=== PATIENT | male | born 1995 | race Caucasian/White ===

== ENCOUNTER → 2017-11-27 08:39 | Outpatient (CLI) | payer OTHER, MEDICAID, SELFPAY | PROVIDERS: PCP Family Medicine; Visit Provider Psychiatry & Neurology Neurology | DX: Z79.899 Other long term (current) drug therapy (principal) ==

== ENCOUNTER → 2022-12-08 09:02 | Outpatient (CLI) | payer OTHER, MEDICAID, SELFPAY ==
--- NOTE | 2022-12-08 09:04 | DI.ECHO.S_ITS ---
[facility]+ : : [address] : [place] : : : : [id number] : : : : Phone: [phone]+ Echocardiogram Report + + :Name: ALYSHA SHEETS Study Date: 12/08/2022 Height: 72.5 in: :[facility] ReadingLocation: Weight: 390 lb : : Gender: Male BSA: 2.8 m2 : :: 1995 Age: 27 yrs : :Reason For Study: CARDIOMEGALY AND PULMONARY EDEMA : :Ordering Physician: JAY, : :LAURA Performed By: Elaine Reddy : :Referring: LAURA THOMPSON : + + Interpretation Summary The ejection fraction is estimated to be 60-65%. The left ventricle is normal in size and wall thickness. There is no significant valvular heart disease. Procedure: A two-dimensional transthoracic echocardiogram with color flow and Doppler was performed. The study quality was technically difficult. There is no prior echocardiogram noted for this patient. The patient was in sinus rhythm with heart rates between 76-90 bpm during the exam. Left Ventricle: The left ventricle is normal in size and wall thickness. The estimated left ventricular end diastolic volume is 91 ml. The ejection fraction is estimated to be 60-65%. Left ventricular wall motion is normal. Right Ventricle: The right ventricle is normal in size and function. Atria: The left atrial size is normal. Right atrial size is normal. There is no Doppler evidence for an interatrial shunt. Mitral Valve: The mitral valve is normal in structure and function. There is no mitral regurgitation noted. Aortic Valve: The aortic valve is not well visualized. There is no aortic valve stenosis. No aortic regurgitation is present. Tricuspid Valve: The tricuspid valve is not well visualized, but is grossly normal. No tricuspid regurgitation. Pulmonic Valve: The pulmonic valve is not well visualized. There is no pulmonic valvular regurgitation. Great Vessels: The aortic root is normal size. The dimensions of the ascending aorta are normal. The inferior vena cava was not visualized. Pericardium/ Pleura There is no pericardial effusion. There is no pleural effusion. MMode/2D Measurements & Calculations LVIDd: 4.8 cm LVOT diam: 2.7 cm LVIDs: 3.2 cm Ao root diam: 3.8 cm FS: 33.0 % asc Aorta Diam: 3.6 cm IVSd: 1.2 cm Ao Arch Diam (Prox Trans): 3.1 cm LVPWd: 0.89 cm LV raymundo. diameter/BSA (cm/m^2): 1.7 LV sys. diameter/BSA (cm/m^2): 1.1 LA A2 area: 18.1 cm2 RA long axis: 5.1 cm LA A4 area: 17.1 cm2 RA area: 16.0 cm2 LA length (vol): 5.8 cm RA vol: 42.7 ml LA vol: 45.6 ml RA : 15.0 ml/m2 LA vol index: 16.0 ml/m2 RVD1 (basal): 3.4 cm RVD2 (mid): 3.1 cm TAPSE: 2.1 cm Doppler Measurements & Calculations Ao V2 max: 115.3 cm/sec LVOT Max Ricci: 96.3 cm/sec Ao V2 mean: 85.1 cm/sec LV V1 max P.7 mmHg Ao max P.3 mmHg LV V1 VTI: 18.0 cm Ao mean P.2 mmHg LATOYA(I,D): 4.6 cm2 Ao V2 VTI: 22.7 cm LATOYA(V,D): 4.8 cm2 sev ratio: 0.79 LATOYA indexed to BSA (cm^2/m^2): 1.6 MV E max ricci: 73.0 cm/sec PA V2 max: 85.8 cm/sec MV A max ricci: 64.0 cm/sec PA V2 mean: 65.2 cm/sec MV E/A: 1.1 PA mean P.8 mmHg Med Peak E' Ricci: 7.6 cm/sec PA pr(Accel): 17.3 mmHg E/E' med: 9.6 Lat Peak E' Ricci: 8.1 cm/sec E/E' lat: 9.0 E/e' average: 9.3 MV dec time: 0.17 sec SV(LVOT): 103.7 ml Reading Physician:05:17 PM
== END ==
PROVIDERS: Family Provider Pediatrics; PCP Family Medicine; Referring Provider Family Medicine; Visit Provider Family Medicine
DX: I51.7 Cardiomegaly (principal); J81.1 Chronic pulmonary edema
CPT/HCPCS: 93306

== ENCOUNTER 2023-08-26 15:32 | Emergency (ER) | payer OTHER, MEDICAID, SELFPAY ==
[2023-08-26 15:36] VITALS: BP 149/87; PULSE 105; RESP 16; TEMP 36.3; O2SAT 95; BMI 49.6
--- NOTE | 2023-08-26 16:40 | ED.GENADULT ---
HPI - General Adult General Chief complaint: Urogenital-Male Stated complaint: sent by Dr Walker for testicular torsion Time Seen by Provider: 08/26/23 16:17 Source: patient and family Mode of arrival: Ambulatory Limitations: other (Autism) History of Present Illness HPI narrative: Patient is a 28-year-old male. Does have autism. Is nonverbal. Is here with mother and sister are his 24 hour caretakers. Is here for evaluation of what they think potentially is testicular pain or maybe even lower abdominal pain. They think it over the past couple days he is expressed discomfort in this area although it does not seem to be persistent. They was sent by the primary doctor for evaluation of concern for maybe a testicular torsion. He was urinating like normal. No prior abdominal surgeries. Has been ?regurgitating? some of his food but this is not necessarily new. Patient is unable to provide any HPI or review of systems. Related Data Previous Rx's Medication Instructions Recorded triamcinolone acetonide 0.5 % 1 applictn topical BID #15 grams 03/17/19 topical cream nystatin 100,000 unit/gram topical 1 applic topical BID #60 grams 01/31/21 powder disabled parking permit #1 ea 04/15/21 glucometer #1 ea 07/07/22 glucose test strips #90 ea 07/07/22 lancet #90 ea 07/07/22 topiramate 100 mg tablet 100 mg PO BID #180 tabs 07/07/22 ketoconazole 2 % shampoo See Rx Instructions .Route 09/08/22 .COMPLEX #120 mL clobetasol 0.05 % topical ointment 1 applic topical BID #45 grams 02/03/23 aripiprazole 10 mg tablet 10 mg PO DAILY #90 tabs 04/22/23 fluvoxamine 100 mg tablet 200 mg (2 x 100 mg) PO ONCE PM 04/22/23 #180 tabs losartan 25 mg tablet 25 mg PO DAILY #90 tabs 04/22/23 propranolol 40 mg tablet 40 mg PO QPM #90 tabs 04/22/23 lorazepam 0.5 mg tablet 0.5 mg PO BID PRN agitation #20 05/07/23 tabs metformin 500 mg tablet 1,000 mg (2 x 500 mg) PO BID #180 06/09/23 tabs Allergies Allergy/AdvReac Type Severity Reaction Status Date / Time No Known Drug Allergies Allergy Verified 08/26/23 15:42 Review of Systems Review of Systems Narrative: See HPI Patient History Medical History Diabetes mellitus Morbid obesity Autism spectrum disorder Essential hypertension Family History Mother Hypertension Social History Smoking Status: Never smoker Smoking Status: Never smoker Substance Use Type: does not use Exam Initial Vital Signs Initial Vital Signs: Vital Signs Temperature 97.4 F L 08/26/23 15:36 Pulse Rate 105 H 08/26/23 15:36 Respiratory Rate 16 08/26/23 15:36 Blood Pressure 149/87 H 08/26/23 15:36 Pulse Oximetry 95 08/26/23 15:36 Oxygen Delivery Method Room Air 08/26/23 15:36 Const General: cooperative Resp Effort & Inspection: normal respiratory effort Auscultation: clear to auscultation bilaterally Cardio Rate: regular rate Rhythm: regular rhythm GI Inspection: normal to inspection and non-distended Palpation: soft Testes: normal, testicular lie normal and no testicular tenderness Skin General: no rashes or lesions noted Neuro General: patient alert and patient awake Extrem General: capillary refill normal Course Orders Ordered: ED Orders 08/26/23 16:40 Urinalysis and Microscopic Stat Urine Culture Stat Vital Signs Vital signs: Vital Signs - 8 hr 08/26/23 15:36 08/26/23 17:46 Temperature 97.4 F L Pulse Rate 105 H 101 H Respiratory Rate 16 20 Blood Pressure 149/87 H 128/88 Pulse Oximetry 95 95 Oxygen Delivery Method Room Air Room Air Medical Decision Making Lab Data Lab results reviewed: Yes I reviewed the patient's lab results. Labs: Lab Results 08/26/23 Range/Units 16:40 Urine Color Yellow Urine Appearance Clear Urine pH 5.5 (4.5-8.0) Ur Specific [place] 1.020 (1.000-1.035) Urine Protein Trace H (Negative) Urine Glucose (UA) Negative (Negative) g/dL Urine Ketones Negative (NEGATIVE) Urine Occult Blood 3+ H (Negative) Urine Nitrate Negative (Negative) Urine Bilirubin Negative (NEGATIVE) Urine Urobilinogen 0.2 (0.2) E.U./dL Ur Leukocyte Esterase Trace H (NEGATIVE) Urine RBC 10-30/hpf H (0-5/HPF) Urine WBC 5-10/hpf H (0-5/HPF) Ur Squamous Epith Cells 1-5 /hpf (0-5/HPF) Urine Bacteria Occasional (0-1) (None) Urine Mucus 1+ H (Negative) Ur Culture Indicated? Specimen cultured Vol Urine Centrifuged 10ml (spun) MDM Narrative Medical decision making narrative: Patient does have a very benign exam. I have very low suspicion for testicular torsion. He does not seem to have any discomfort with palpation of his abdomen. Does have hematuria but my concern for kidney stone is low. Also have a low concern for urinary tract infection although we do have a pending urine culture. I had a long discussion with the patient's mother and sister. We discussed the possibility of needing to sedate the patient in order to get an IV then performing an ultrasound or a CT scan. We also discussed the possibility of not doing any of these and seeing how things go over the next couple days. We discussed risks and benefits of this. After this discussion we opted to hold on any further workup for now. They understand the lack of a definitive diagnosis and understand that if his symptoms worse they will come to the emergency department for further evaluation. Discharge Plan Departure Patient Disposition: Home Clinical Impression: Hematuria Instructions: DI for Hematuria Activity Restrictions/Additional Instructions: Based on our discussion today we will hold on further workup to include any imaging studies and IV and blood work. A urine culture was pending at the time of his discharge and we will contact you if we need to start any antibiotics based on this. If he develops any new symptoms to include fevers, worsening signs of distress or worsening vomiting please return to the emergency department for further evaluation. Prescriptions: No Action topiramate 100 mg tablet 100 mg PO BID Qty: 180 2RF nystatin 100,000 unit/gram powder 1 applic topical BID Qty: 60 2RF clobetasol 0.05 % ointment 1 applic topical BID Qty: 45 2RF triamcinolone acetonide 0.5 % cream 1 applictn TOP BID Qty: 15 2RF (DME) disabled parking permit See Rx Instructions .ROUTE .MEDSUPPLY Qty: 1 0RF Rx Instructions: My patient cannot walk 200 feet without stopping to rest or must use assistive device. Walking is severely limited due to arthritic, neurological or orthopedic condition. Uses portable oxygen or walking restricted by lung disease (DME) glucometer See Rx Instructions .Route .MEDSUPPLY Qty: 1 1RF Rx Instructions: As directed to test glucose up to three times daily (DME) lancet See Rx Instructions .Route .MEDSUPPLY Qty: 90 3RF Rx Instructions: As directed, to test glucose up to three times daily (DME) glucose test strips See Rx Instructions .Route .MEDSUPPLY Qty: 90 3RF Rx Instructions: As directed, to test glucose up to three times daily ketoconazole 2 % shampoo See Rx Instructions .ROUTE .COMPLEX Qty: 120 2RF Dose Instruction: APPLY ONE APPLICATION TOPICALLY TWICE A WEEK. Rx Instructions: APPLY ONE APPLICATION TOPICALLY TWICE A WEEK. losartan 25 mg tablet 25 mg PO DAILY Qty: 90 2RF propranolol 40 mg tablet 40 mg PO QPM Qty: 90 2RF aripiprazole 10 mg tablet 10 mg PO DAILY Qty: 90 2RF fluvoxamine 100 mg tablet 200 mg PO ONCE PM Qty: 180 2RF lorazepam 0.5 mg tablet 0.5 mg PO BID PRN (Reason: agitation) Qty: 20 0RF metformin 500 mg tablet 1,000 mg PO BID Qty: 180 1RF Referrals: Tawny Walker MD [Primary Care Provider] - Stand Alone Forms: Patient Portal/API
[2023-08-26 17:03] LABS: Appearance Urine UA CLEAR; Bilirubin Urine UA NEGATIVE (NEGATIVE); Color Urine UA YELLOW; Glucose Urine UA NEGATIVE (Negative); Ketones Urine UA NEGATIVE (NEGATIVE); Leukocyte Esterase Urine UA TRACE (NEGATIVE); Nitrite Urine UA NEGATIVE (Negative); Occult Blood Urine UA 3+ (Negative); Protein Urine UA TRACE (Negative); Urobilinogen Urine UA 0.2 E.U./dL (0.2); pH Urine UA 5.5 (4.5-8.0)
[2023-08-26 17:09] LABS: Bacteria Urine Occasional (0-1); RBC Urine 10-30/HPF (0-5/HPF); Urine Volume 10mL (spun); WBC Urine 5-10/HPF (0-5/HPF)
[2023-08-26 17:10] LABS: Culture Indicated Urine Specimen Cultured; Mucus Urine 1+ (Negative); Squamous Epithelial Cell Urine 1-5 /HPF (0-5/HPF)
[2023-08-26 17:46] VITALS: BP 128/88; PULSE 101; RESP 20; O2SAT 95
== END 2023-08-26 17:38 | disposition home or self-care (01) ==
PROVIDERS: Emergency Provider Emergency Medicine; Family Provider Pediatrics; PCP Family Medicine
DX: R31.9 Hematuria, unspecified (principal)
CPT/HCPCS: 81001; 87086; 99281; 99282

== ENCOUNTER → 2024-08-26 09:44 | Outpatient (CLI) | payer OTHER, SELFPAY ==
[2024-08-26 11:39] LABS: Alanine Aminotransferase 298 IU/L (<50); Albumin 4.8 g/dL (3.5-5.0); Albumin Globulin Ratio 1.4 (1.0-2.8); Alkaline Phosphatase 76 U/L (38-126); Aspartate Aminotransferase 175 IU/L (17-59); BUN Creatinine Ratio 9.3 (6-22); Bilirubin Total 0.7 mg/dL (0.2-1.3); Blood Urea Nitrogen 11 mg/dL (9-20); Carbon Dioxide 27 mmol/L (22-32); Chloride 103 mmol/L (98-107); Cholesterol 198 mg/dL (140-199); Estimated Glomerular Filt Rate > 60 mL/min (>60); Globulin 3.5 g/dL (1.7-4.1); Glucose 114 mg/dL (70-99); HDL Cholesterol 39 mg/dL (40-60); HEMOLYSIS < 15 (0-50); LDL Cholesterol Calculated 115 mg/dL (<100); Potassium 4.3 mmol/L (3.4-5.1); Sodium 142 mmol/L (137-145); Total Protein 8.3 g/dL (6.3-8.2); Triglycerides 221 mg/dL (35-150)
[2024-08-26 12:08] LABS: Add Manual Diff / Slide Review NO; Basophils Absolute Auto 100 /uL (0-100); Basophils Percent Auto 0.9 % (0-2); Eosinophils Absolute Auto 100 /uL (0-450); Eosinophils Percent Auto 2.2 % (2-4); Hematocrit 46.7 % (41-53); Hemoglobin 15.6 g/dL (13.5-17.5); Lymphocytes Absolute Auto 1400 /uL (1100-4500); Lymphocytes Percent Auto 22.2 % (25-40); Mean Corpuscular HGB Conc 33.3 % (30-36); Mean Corpuscular Hemoglobin 29.2 PG (26-34); Mean Corpuscular Volume 87.6 fL (80-100); Monocytes Absolute Auto 400 /uL (0-900); Monocytes Percent Auto 6.7 % (3-14); Neutrophils Absolute Auto 4200 /uL (1500-7000); Platelet Count 233 X10^3/uL (150-400); Red Blood Cell Count 5.34 X10^6/uL (4.5-5.9); Red Cell Distribution Width 14.6 % (11.6-14.8); White Blood Cell Count 6.1 X10^3/uL (4.5-11.0)
[2024-08-26 12:10] LABS: Thyroid Stimulating Hormone 1.75 uIU/mL (0.47-4.68)
[2024-08-26 12:28] LABS: Vitamin B12 952 pg/mL (239-931)
== END ==
LOC: LAB 09:45
PROVIDERS: Family Provider Pediatrics; PCP Family Medicine; Referring Provider Family Medicine; Visit Provider Family Medicine
DX: E11.9 Type 2 diabetes mellitus without complications (principal); E66.9 Obesity, unspecified
CPT/HCPCS: 36415; 80053; 80061; 82607; 84443; 85025

== ENCOUNTER → 2024-08-28 10:36 | Outpatient (CLI) | payer OTHER, SELFPAY ==
[2024-08-29 00:07] LABS: HBsAg Screen Negative (Negative); Hepatitis A Antibody IgM Negative (Negative); Hepatitis B Core Antibody IgM Negative (Negative); Hepatitis C Antibody Non Reactive (Non Reactive)
== END ==
PROVIDERS: Family Provider Pediatrics; PCP Family Medicine; Referring Provider Family Medicine; Visit Provider Family Medicine
DX: R74.8 Abnormal levels of other serum enzymes (principal)
CPT/HCPCS: 36415; 80074

== ENCOUNTER → 2024-09-08 07:17 | Outpatient (CLI) | payer OTHER, SELFPAY ==
--- NOTE | 2024-09-08 07:18 | DI.US.S_ITS ---
PROCEDURE: US ABDOMEN LIMITED INDICATIONS: elevated liver enzymes TECHNIQUE: Real-time focused scanning was performed of the abdomen, with image documentation. COMPARISON: None. FINDINGS: Limited exam secondary to patient body habitus and bowel gas. The visible portions of the liver demonstrate diffuse parenchymal echogenicity. No focal mass. The liver is normal size measuring 16 9 cm in length. Appropriate direction of flow in main portal vein. Gallbladder was challenging to visualize but probably contains calcified, shadowing stones near fundus. The wall is normal thickness. No pericholecystic fluid or sonographic Beck sign. Common duct is normal caliber at 4.4 mm. The pancreas was not well seen. Visible portions of the right kidney are grossly normal. No free fluid in the right upper quadrant. IMPRESSION: Probable cholelithiasis without sonographic evidence of acute cholecystitis. Probable hepatic steatosis, given body habitus, or other intrinsic liver disease. Dictated by: Bethany Espana M.D. on 09/10/2024 at 7:46 Approved by: Bethany Espana M.D. on 09/10/2024 at 7:48
== END ==
LOC: US 07:18
PROVIDERS: Family Provider Pediatrics; PCP Family Medicine; Referring Provider Family Medicine; Visit Provider Family Medicine
DX: R74.8 Abnormal levels of other serum enzymes (principal)
CPT/HCPCS: 76705

== ENCOUNTER → 2024-11-09 08:50 | Outpatient (CLI) | payer OTHER, SELFPAY ==
[2024-11-09 10:09] LABS: Alanine Aminotransferase 38 IU/L (<50); Albumin 4.4 g/dL (3.5-5.0); Albumin Globulin Ratio 1.3 (1.0-2.8); Alkaline Phosphatase 75 U/L (38-126); Blood Urea Nitrogen 14 mg/dL (9-20); Calcium 9.4 mg/dL (8.4-10.2); Carbon Dioxide 28 mmol/L (22-32); Chloride 104 mmol/L (98-107); Cholesterol 176 mg/dL (140-199); Estimated Glomerular Filt Rate > 60 mL/min (>60); Globulin 3.4 g/dL (1.7-4.1); Glucose 108 mg/dL (70-99); HDL Cholesterol 34 mg/dL (40-60); HEMOLYSIS < 15 (0-50); Potassium 4.3 mmol/L (3.4-5.1); Sodium 140 mmol/L (137-145); Total Protein 7.8 g/dL (6.3-8.2); Triglycerides 247 mg/dL (35-150)
[2024-11-09 10:24] LABS: Vitamin D 25 Hydroxy (D3) 44.1 ng/mL (30.0-100.0)
== END ==
PROVIDERS: Family Provider Pediatrics; PCP Family Medicine; Referring Provider Family Medicine; Visit Provider Family Medicine
DX: E78.5 Hyperlipidemia, unspecified (principal); R53.83 Other fatigue
CPT/HCPCS: 36415; 80053; 80061; 82306

== ENCOUNTER → 2025-02-08 08:55 | Outpatient (CLI) | payer OTHER, SELFPAY ==
[2025-02-08 10:20] LABS: Hemoglobin A1C% w Est Avg Glu 6.0 % (4.0-6.0)
[2025-02-08 10:47] LABS: Appearance Urine UA CLEAR; Bilirubin Urine UA NEGATIVE (NEGATIVE); Color Urine UA YELLOW; Glucose Urine UA NEGATIVE (Negative); Ketones Urine UA NEGATIVE (NEGATIVE); Leukocyte Esterase Urine UA NEGATIVE (NEGATIVE); Nitrite Urine UA NEGATIVE (Negative); Occult Blood Urine UA NEGATIVE (Negative); Protein Urine UA NEGATIVE (Negative); Specific Gravity Urine UA 1.020 (1.000-1.035); Urobilinogen Urine UA 0.2 E.U./dL (0.2); pH Urine UA 6.0 (4.5-8.0)
[2025-02-08 10:53] LABS: Alanine Aminotransferase 36 IU/L (<50); Albumin 4.4 g/dL (3.5-5.0); Albumin Globulin Ratio 1.3 (1.0-2.8); Alkaline Phosphatase 71 U/L (38-126); Blood Urea Nitrogen 10 mg/dL (9-20); Calcium 9.2 mg/dL (8.4-10.2); Carbon Dioxide 26 mmol/L (22-32); Chloride 101 mmol/L (98-107); Estimated Glomerular Filt Rate > 60 mL/min (>60); Globulin 3.4 g/dL (1.7-4.1); Glucose 101 mg/dL (70-99); HEMOLYSIS < 15 (0-50); Potassium 4.0 mmol/L (3.4-5.1); Sodium 138 mmol/L (137-145); Total Protein 7.8 g/dL (6.3-8.2)
[2025-02-08 11:25] LABS: Microalbumi Creatinin Ratio Ur 30.0 ug/mg CR (<30)
== END ==
PROVIDERS: Family Provider Pediatrics; PCP Family Medicine; Referring Provider Family Medicine; Visit Provider Family Medicine
DX: E78.5 Hyperlipidemia, unspecified (principal); E11.9 Type 2 diabetes mellitus without complications; I10 Essential (primary) hypertension; R30.0 Dysuria
CPT/HCPCS: 36415; 80053; 81001; 82043; 82570; 83036; 87086

== ENCOUNTER 2025-03-16 11:39 | Emergency (ER) | payer OTHER, SELFPAY ==
[2025-03-16 11:45] VITALS: BP 131/81; PULSE 99; RESP 18; TEMP 36.2; O2SAT 94; BMI 48.8
--- NOTE | 2025-03-16 11:58 | DI.US.S_ITS ---
PROCEDURE: US PERIPH VENOUS LOW EXTREM LT INDICATIONS: calf pain / swelling TECHNIQUE: Real-time imaging, as well as color and pulse Doppler interrogation, were performed of the lower extremity deep veins from the inguinal ligament to the popliteal fossa, with documentation of the visualized calf veins. COMPARISON: None. FINDINGS: The common femoral, femoral, popliteal, and the visualized calf veins are normally compressible, and free of intraluminal thrombus. Color and pulse Doppler demonstrate normal phasic intraluminal flow. There is normal augmentation response to distal compression maneuver. IMPRESSION: No findings of lower extremity deep venous thrombosis. Dictated by: Bud Newby M.D. on 03/16/2025 at 13:08 Approved by: Bud Newby M.D. on 03/16/2025 at 13:09
--- NOTE | 2025-03-16 12:01 | ED_ITS ---
HPI - Extremity Injury (Lower) <Kaley Toussaint PA-C - Last Filed: 03/16/25 19:45> General Chief Complaint: Extremity Injury, Lower Stated Complaint: Vomiting this AM, L leg swelling last hour Time Seen by Provider: 03/16/25 11:47 Source: family Mode of arrival: Ambulatory History of Present Illness HPI Narrative: Kurt Knight is a pleasant 30-year-old male with a past medical history of nonverbal autism, morbid obesity, HTN on losartan and propranolol, diabetes on metformin, FRANCINE, hepatic steatosis who presents to the emergency department with his mom and sister for an episode of vomiting this morning and left calf swelling x1 hour. Patient is nonverbal however he can relay symptoms of pain and discomfort to his family members who translate on his behalf. This morning when he woke up he had a small amount of spit up/vomiting, family was not extremely concerned about this as he did eat a can of cold spaghetti very late at night last night. However this morning they noticed that his left calf was becoming swollen compared to the right. They do not recall a specific injury however the dog did somewhat trip over his left foot yesterday. Kurt is signifying that he has some abdominal discomfort. He has not had any subsequent nausea or vomiting today and he was able to eat and drink. No fevers, chills, shortness of breath. Did have occasional cough on the drive over here but he has not been coughing or exhibiting any flu-like symptoms recently. He did have a small bowel movement yesterday. There is no color change or bruising to the leg, he is able to ambulate normally. Related Data Home Medications ?Medication ?Instructions ?Recorded ?Confirmed clindamycin phosphate 1 % topical 1 applic topical OFELIA LY 02/14/24 02/12/25 gel fluocinolone 0.01 % topical cream 1 applic topical BID 02/14/24 02/12/25 desonide 0.05 % topical cream applic topical 07/20/24 02/12/25 Previous Rx's ?Medication ?Instructions ?Recorded triamcinolone acetonide 0.5 % 1 applictn topical BID # 15 grams 03/17/19 topical cream nystatin 100,000 unit/gram topical 1 applic topical BI D #60 grams 01/31/21 powder disabled [address] permit #1 ea 04/15/21 glucose test strips #90 ea 07/07/22 lancet #90 ea 07/07/22 transport wheelchair #1 ea 02/14/24 clobetasol 0.05 % topical ointment 1 applic topical BI D #45 grams 06/27/24 glucometer #1 ea 08/14/24 metformin 500 mg tablet,extended 500 mg PO BID #180 ta bs 08/15/24 release 24 hr ketoconazole 2 % shampoo See Rx Instructions .Route 0 08/23/24 .COMPLEX #120 mL topiramate 100 mg tablet 100 mg PO BID #180 tabs 0707/25 losartan 25 mg tablet 25 mg PO DAILY #90 tabs 11/01 06/27 propranolol 40 mg tablet 40 mg PO QPM #90 tabs lorazepam 0.5 mg tablet 0.5 mg PO BID PRN agitation #20 02/07/25 tabs tirzepatide 2.5 mg/0.5 mL 2.5 mg (0.5 mL) SUBCUT QWEEK #2 mL 02/12/25 subcutaneous pen injector tirzepatide 2.5 mg/0.5 mL 2.5 mg (0.5 mL) SUBCUT QWEEK #2 mL 02/13/25 subcutaneous pen injector fluvoxamine 100 mg tablet 200 mg (2 x 100 mg) PO ONCE PM 02/28/25 #180 tabs aripiprazole 5 mg tablet 7.5 mg (1.5 x 5 mg) PO BID # 135 03/13/25 tabs ondansetron 4 mg disintegrating 4 mg PO Q8H PRN nausea and 03/16/25 tablet vomiting #10 tabs Allergies Allergy/AdvReac Type Severity Reaction Status Date / Time No Known Drug Allergies Allergy Verified 02/12/25 13:31 Review of Systems <Kaley Toussaint PA-C - Last Filed: 03/16/25 19:45> Review of Systems ROS Unobtainable: All systems reviewed & are unremarkable except as noted in HPI and below Patient History <Kaley Toussaint PA-C - Last Filed: 03/16/25 19:45> Medical History Diabetes mellitus Morbid obesity Autism spectrum disorder Essential hypertension Family History Mother Hypertension Social History Smoking Status: Never smoker Smoking Status: Never smoker Exam <Kaley Toussaint PA-C - Last Filed: 03/16/25 19:45> Narrative Exam Narrative: GENERAL: 30 year old patient appears stated age. Obese patient, in no acute distress. HEAD: Atraumatic. Normocephalic. EYES: Extraocular motions intact. No scleral icterus. No injection or drainage. ENT: Nose without bleeding, purulent drainage. NECK: Trachea midline. Cervical ROM intact. CARDIOVASCULAR: Regular rate and rhythm. RESPIRATORY: ?Nonlabored respirations. ?Speaking in clear, full sentences. ?Clear to auscultation. Breath sounds equal bilaterally. No wheezes, rales, or rhonchi. ? GASTROINTESTINAL: Abdomen soft, non-tender, nondistended. Bs present. EXTREMITIES: DP pulses palpable BL, brisk cap refill on toes. Patient has large bilateral calf muscles, family does report left side is more swollen than usual, there is no pitting edema, no obvious asymmetry of the legs, no erythema or increased warmth on the left lower extremity. No reproducible tenderness to left foot, medial or lateral malleolus, knee, reilly, bilateral Achilles tendons. Patient is able to dorsi and plantar flex. NEURO: Nonverbal, is able to communicate with sounds with family.?Moves all 4 extremities appropriately. SKIN: No rash or erythema of visible areas. Initial Vital Signs Initial Vital Signs: Vital Signs Temperature 97.1 F L 03/16/25 11:45 Pulse Rate 99 H 03/16/25 11:45 Respiratory Rate 18 03/16/25 11:45 Blood Pressure 131/81 03/16/25 11:45 Pulse Oximetry 94 03/16/25 11:45 Oxygen Delivery Method Room Air 03/16/25 11:45 <Kael Mackenzie MD - Last Filed: 03/19/25 16:00> Initial Vital Signs Initial Vital Signs: Vital Signs Temperature 97.1 F L 03/16/25 11:45 Pulse Rate 99 H 03/16/25 11:45 Respiratory Rate 18 03/16/25 11:45 Blood Pressure 131/81 03/16/25 11:45 Pulse Oximetry 94 03/16/25 11:45 Oxygen Delivery Method Room Air 03/16/25 11:45 Course <Kaley Toussaint PA-C - Last Filed: 03/16/25 19:45> Orders Ordered: Discontinued Medications Ondansetron HCl (Ondansetron 4 Mg Odt) 4 mg SL NOW ONE Stop: 03/16/25 11:59 Last Admin: 03/16/25 12:14 Dose: 4 mg Documented By: SBF Vital Signs Vital signs: Vital Signs - 8 hr 03/16/25 11:45 03/16/25 12:26 03/16/25 13:39 Temperature 97.1 F L 97.6 F Pulse Rate 99 H 87 87 Respiratory Rate 18 18 18 Blood Pressure 131/81 144/97 H 133/88 Pulse Oximetry 94 93 96 Oxygen Delivery Method Room Air Room Air Room Air <Kael Mackenzie MD - Last Filed: 03/19/25 16:00> Orders Ordered: Discontinued Medications Ondansetron HCl (Ondansetron 4 Mg Odt) 4 mg SL NOW ONE Stop: 03/16/25 11:59 Last Admin: 03/16/25 12:14 Dose: 4 mg Documented By: SBF Vital Signs Vital signs: Vital Signs - 8 hr 03/16/25 11:45 03/16/25 12:26 03/16/25 13:39 Temperature 97.1 F L 97.6 F Pulse Rate 99 H 87 87 Respiratory Rate 18 18 18 Blood Pressure 131/81 144/97 H 133/88 Pulse Oximetry 94 93 96 Oxygen Delivery Method Room Air Room Air Room Air MDM - Extremity Injury (Lower) <Kaley Toussaint PA-C - Last Filed: 03/16/25 19:45> Medical Records Attestation: I reviewed the patient's medical records. Lab Data Labs: Lab Results 03/16/25 Range/Units 12:09 POC Whole Bld Glucose 86 (70-99) mg/dL Point of Care Testing Glucose POC 86 Urine Dip Bedside Urine Glucose Negative Bedside Urine Bilirubin - Negative Bedside Urine Ketone - Negative Urine Specific [place] 1.015 Bedside Urine Occult Blood - Negative Bedside Urine pH 7.5 Bedside Urine Protein - Negative Bedside Urine Urobilinogen - Negative Bedside Urine Nitrite - Negative Bedside Urine Leukocytes - Negative Esterase Imaging Data LLE Venous US: Radiologist's Impression: PROCEDURE: US PERIPH VENOUS LOW EXTREM LT INDICATIONS: calf pain / swelling TECHNIQUE: Real-time imaging, as well as color and pulse Doppler interrogation, were performed of the lower extremity deep veins from the inguinal ligament to the popliteal fossa, with documentation of the visualized calf veins. COMPARISON: None. FINDINGS: The common femoral, femoral, popliteal, and the visualized calf veins are normally compressible, and free of intraluminal thrombus. Color and pulse Doppler demonstrate normal phasic intraluminal flow. There is normal augmentation response to distal compression maneuver. IMPRESSION: No findings of lower extremity deep venous thrombosis. Dictated by: Bud Newby M.D. on 03/16/2025 at 13:08 Approved by: Bud Newby M.D. on 03/16/2025 at 13:09 [facility] Narrative Medical decision making narrative: 30-year-old male with a past medical history of nonverbal autism, morbid obesity, HTN on losartan and propranolol, diabetes on metformin, FRANCINE, hepatic steatosis who presents to the emergency department with his mom and sister for an episode of vomiting this morning and left calf swelling x1 hour. Mom does report a history of kidney stones. Differential diagnosis includes but is not limited to calf strain, sprain, DVT, hyperglycemia, hypoglycemia, etc. On exam the patient is in no acute distress, nontoxic appearing. Normal blood pressure, heart rate is slightly elevated at triage at 99, he is afebrile. Family is noticing increased size of left calf, no obvious abnormality or pitting edema, no tenderness of the knee, reilly ankle or foot. He is neurovascularly intact. Given patient's body habitus, concern for rapid calf swelling with no known injury, we will obtain ultrasound, check point of care glucose, treat nausea with Zofran, we will determine additional workup as needed based on repeat vital signs and current workup. POC glucose 85. Point of care urinalysis negative. Printed and discussed ultrasound results with the patient's mom. Ultrasound reveals no findings of lower extremity deep venous thrombosis. Patient has been feeling well since coming to the emergency department, he did well with the Zofran, has been ambulating normally, and is very eager to go home. At this time recommended supportive care of the left calf swelling including compression socks and elevation, prn Zofran if needed for nausea, prompt PCP follow up, and strict ER return precautions were discussed including but not limiting to increased swelling of the calf, redness, fevers, vomiting, pain or other concerns. Patient's mom feels comfortable with this plan and verbalized understanding. Patient is stable for discharge home. <Kael Mackenzie MD - Last Filed: 03/19/25 16:00> Lab Data Labs: Lab Results 03/16/25 Range/Units 12:09 POC Whole Bld Glucose 86 (70-99) mg/dL Point of Care Testing Glucose POC 86 Urine Dip Bedside Urine Glucose Negative Bedside Urine Bilirubin - Negative Bedside Urine Ketone - Negative Urine Specific [place] 1.015 Bedside Urine Occult Blood - Negative Bedside Urine pH 7.5 Bedside Urine Protein - Negative Bedside Urine Urobilinogen - Negative Bedside Urine Nitrite - Negative Bedside Urine Leukocytes - Negative Esterase Discharge Plan Departure Patient Disposition: Home Clinical Impression: Nausea, Swelling of calf Instructions: DI for Calf Muscle Strain Activity Restrictions/Additional Instructions: Thank you for bringing Kurt to the emergency department today. He was evaluated for nausea vomiting and left calf swelling. Ultrasound of his left lower leg did not reveal any blood clot. His urinalysis and blood glucose were both normal. Sometimes, we do not always find the cause for your symptoms in one ER visit. The findings on his exam today is reassuring. At this time, it is not 100% certain what is causing his symptoms, but we feel he can be discharged from the emergency department. It is possible this may worsen or you may get better. Please, if you get worse or your symptoms change, return to the emergency department. Please encourage him to rest, hydrate, use compression socks and elevate the left leg to help with any swelling. Please return to the emergency department immediately if he develops fevers, persistent vomiting, redness of the leg, increased swelling or any other concerns. Please follow up with your primary care doctor within the next 2-3 days for ER follow-up. (If you do not have a PCP you can call [phone]. ?to schedule an appointment with an [facility] Primary Care Provider) IF YOU DEVELOP ANY NEW OR WORSENING SYMPTOMS, RETURN TO THE ER! Please read the attached instructions, they highlight more specific treatments and interventions for you at home. Thank you for letting me participate in your care, Kaley Toussaint PA-C Prescriptions: New ondansetron 4 mg tablet,disintegrating 4 mg PO Q8H PRN (Reason: nausea and vomiting) Qty: 10 0RF No Action (DME) glucometer See Rx Instructions .Route .MEDSUPPLY Qty: 1 1RF Rx Instructions: As directed to test glucose up to three times daily metformin 500 mg tablet extended release 24 hr 500 mg PO BID Qty: 180 3RF nystatin 100,000 unit/gram powder 1 applic topical BID Qty: 60 2RF clindamycin phosphate 1 % gel 1 applic topical DAILY fluocinolone 0.01 % cream 1 applic topical BID (DME) transport wheelchair See Rx Instructions .Route .MEDSUPPLY Qty: 1 0RF Rx Instructions: As directed for emergency use desonide 0.05 % cream topical tirzepatide 2.5 mg/0.5 mL pen injector 2.5 mg SUBCUT QWEEK Qty: 2 3RF Rx Instructions: for 4 weeks tirzepatide 2.5 mg/0.5 mL pen injector 2.5 mg SUBCUT QWEEK Qty: 2 1RF Rx Instructions: for 4 weeks triamcinolone acetonide 0.5 % cream 1 applictn TOP BID Qty: 15 2RF (DME) disabled parking permit See Rx Instructions .ROUTE .MEDSUPPLY Qty: 1 0RF Rx Instructions: My patient cannot walk 200 feet without stopping to rest or must use assistive device. Walking is severely limited due to arthritic, neurological or orthopedic condition. Uses portable oxygen or walking restricted by lung disease (DME) lancet See Rx Instructions .Route .MEDSUPPLY Qty: 90 3RF Rx Instructions: As directed, to test glucose up to three times daily ([facility]) glucose test strips See Rx Instructions .Route .MEDSUPPLY Qty: 90 3RF Rx Instructions: As directed, to test glucose up to three times daily clobetasol 0.05 % ointment 1 applic topical BID Qty: 45 2RF ketoconazole 2 % shampoo See Rx Instructions .ROUTE .COMPLEX Qty: 120 2RF Dose Instruction: APPLY ONE APPLICATION TOPICALLY TWICE A WEEK. Rx Instructions: APPLY ONE APPLICATION TOPICALLY TWICE A WEEK. topiramate 100 mg tablet 100 mg PO BID Qty: 180 2RF losartan 25 mg tablet 25 mg PO DAILY Qty: 90 2RF propranolol 40 mg tablet 40 mg PO QPM Qty: 90 2RF lorazepam 0.5 mg tablet 0.5 mg PO BID PRN (Reason: agitation) Qty: 20 0RF fluvoxamine 100 mg tablet 200 mg PO ONCE PM Qty: 180 3RF aripiprazole 5 mg tablet 7.5 mg PO BID Qty: 135 1RF Referrals: Tawny Walker MD [Primary Care Provider, Family Practice] Stand Alone Forms: Patient Portal/API ED Sign-out <Kael Mackenzie MD - Last Filed: 03/19/25 16:00> Cosign ED Attending Cosignature Attestation: I was immediately available in the department for consultation. ?This documentation has been reviewed and I agree with assessment and plan. Supervised by Kael Mackenzie MD
[2025-03-16] MEDS: ONDANSETRON 4 MG ODT SL (12:14)
[2025-03-16 12:26] VITALS: BP 144/97; PULSE 87; RESP 18; O2SAT 93
[2025-03-16 13:39] VITALS: BP 133/88; PULSE 87; RESP 18; TEMP 36.4; O2SAT 96
== END 2025-03-16 13:44 | disposition home or self-care (01) ==
PROVIDERS: Emergency Provider Physician Assistant; Family Provider Pediatrics; PCP Family Medicine
DX: R60.9 Edema, unspecified (principal); R11.0 Nausea
CPT/HCPCS: 81003; 82962; 93971; 99283